=== PATIENT | male | born 1960 | race Caucasian/White ===

== ENCOUNTER 2016-10-04 09:08 | Emergency (ER) | payer OTHER ==
[~2016-10-04 09:08] MED LIST: AMITRIPTYLINE H50 M1 PO; AMITRIPTYLINE50 MG PO; BUSPAR 30MG30 MG/TAB PO; BUSPAR DIVIDOSE30 MG PO; GABAPENTIN800 MG PO; LYRICA100 MG PO; MOTRIN 200200 MG/TAB PO; NEURONTIN800 MG/TAB PO; XANAX 0.5MG0.5 MG PO; XANAX0.5 MG PO; ZOLOFT100 MG PO
[2016-10-04 09:23] VITALS: BP 136/90; PULSE 95; TEMP 98.7
== END 2016-10-04 10:42 | disposition home or self-care (01) ==
LOC: COL.ER 09:08
DX: M25.511 Pain in right shoulder (principal); W22.01XA Walked into wall, initial encounter

== ENCOUNTER 2017-01-25 13:59 | Emergency (ER) | payer BC ==
[~2017-01-25] VITALS: Ht 182.9 cm; Wt 72.7 kg
[2017-01-25 14:03] VITALS: TEMP 98.5
[2017-01-25 16:06] VITALS: BP 136/82; PULSE 86
== END 2017-01-25 16:07 | disposition home or self-care (01) ==
LOC: COL.ER 13:59
DX: S27.0XXA Traumatic pneumothorax, initial encounter (principal); R07.81 Pleurodynia; W18.2XXA Fall in (into) shower or empty bathtub, initial encounter; Y92.002 Bathroom of unspecified non-institutional (private) residence as the place of occurrence of the external cause; F41.9 Anxiety disorder, unspecified; F10.20 Alcohol dependence, uncomplicated; F17.210 Nicotine dependence, cigarettes, uncomplicated; G57.93 Unspecified mononeuropathy of bilateral lower limbs

== ENCOUNTER → 2017-01-26 | Outpatient (CLI) | payer BC | LOC: COL.RAD 09:06 | DX: J93.9 Pneumothorax, unspecified (principal) ==

== ENCOUNTER → 2017-01-28 | Outpatient (CLI) | payer BC | LOC: COL.RAD 09:42 | DX: J93.9 Pneumothorax, unspecified (principal); J98.11 Atelectasis ==

== ENCOUNTER 2017-02-04 11:43 | Emergency (ER) | payer BC ==
[~2017-02-04] VITALS: Ht 182.9 cm; Wt 72.7 kg
[2017-02-04 11:45] VITALS: BP 136/85; PULSE 84; TEMP 99.1
== END 2017-02-04 12:02 | disposition left against medical advice (07) ==
LOC: COL.ER 11:43
DX: J93.9 Pneumothorax, unspecified (principal); Z53.21 Procedure and treatment not carried out due to patient leaving prior to being seen by health care provider

== ENCOUNTER → 2017-02-04 | Outpatient (CLI) | payer BC | LOC: COL.RAD 12:04 | DX: J93.9 Pneumothorax, unspecified (principal); J90 Pleural effusion, not elsewhere classified ==

== ENCOUNTER → 2017-07-10 | Emergency (ER) | payer SELFPAY ==
[~2017-07-10] VITALS: Wt 71.8 kg
[2017-07-10 18:29] VITALS: TEMP 97.4
[2017-07-10 18:40] LABS: MEAN CELL VOLUME 104 fl (80.0-100.0); MEAN CORPUSCULAR HGB CONC 39 g/dl (33.0-37.0); MEAN PLATELET VOLUME 11.4 fl (7.4-10.4); PLATELET COUNT 91 K/mm3 (130-400); RED BLOOD COUNT 2.22 M/mm3 (4.20-5.60); WHITE BLOOD COUNT 9.3 K/mm3 (4.8-10.8)
[2017-07-10 18:41] LABS: PROTHROMBIN TIME 22.2 SECONDS (9.7-12.8)
[2017-07-10 18:43] LABS: ADD PATHOLOGY DIFF REVIEW NO; HEMOGLOBIN 8.9 g/dl (13.5-18.0); MEAN CORPUSCULAR HEMOGLOBIN 40 pg (27.0-31.0)
[2017-07-10 18:46] LABS: ADJUSTED CALCIUM 8.8 mg/dL (8.4-10.2); ALBUMIN 2.7 gm/dL (3.5-5.0); BILIRUBIN,TOTAL 23.1 mg/dL (0.0-1.0); CALCIUM 7.8 mg/dL (8.4-10.2); CREATININE, serum 0.69 mg/dL (0.66-1.25); POTASSIUM 3.3 mmol/L (3.4-5.0)
[2017-07-10 20:15] LABS: BAND 2 % (0-10); LYMPHOCYTE 6 % (20.0-51.0); NEUTROPHILS 89 % (42.0-75.2); PLATELET ESTIMATE NORMAL (NORMAL); TOTAL CELLS COUNTED 100
[2017-07-10 21:20] VITALS: BP 117/76; PULSE 78
== END ==
LOC: COL.ER 18:23
PROVIDERS: Emergency Medicine
DX: K74.60 Unspecified cirrhosis of liver (principal); I62.1 Nontraumatic extradural hemorrhage; E87.1 Hypo-osmolality and hyponatremia; E80.6 Other disorders of bilirubin metabolism; R29.6 Repeated falls; G62.9 Polyneuropathy, unspecified; F10.10 Alcohol abuse, uncomplicated
CPT/HCPCS: J3010; J3411; J3430; J7030